=== PATIENT | female | born 1945 | race Caucasian/White ===

== ENCOUNTER 2018-02-21 06:56 | Day surgery (SDC) | payer OTHER ==
[~2018-02-21] VITALS: Ht 162.6 cm; Wt 73.0 kg
[2018-02-21] MEDS ORDERED: CEFAZOLIN SODIUM 1 GM/D5W PM 50 ML IV SCH (07:55)
[2018-02-21] MEDS ORDERED: SIMV20TA1 PO (08:11)
[2018-02-21] MEDS ORDERED: SYN.075 PO (08:11)
[2018-02-21] MEDS ORDERED: BUPIVACAINE-MPF/EPI 0.5% 30 ML VIAL INJ ONE (11:36)
[2018-02-21] MEDS ORDERED: LIDOCAINE MPF 1% - 5 mL VIAL 15 ML ONE (11:37)
== END 2018-02-21 13:25 | disposition home or self-care (01) ==
LOC: MDS 06:56 → MMU 07:01 → MDS 13:25
PROVIDERS: ATTEND Surgery
DX: D17.22 Benign lipomatous neoplasm of skin and subcutaneous tissue of left arm (principal); E78.00 Pure hypercholesterolemia, unspecified; E03.9 Hypothyroidism, unspecified; M19.90 Unspecified osteoarthritis, unspecified site; Z79.899 Other long term (current) drug therapy; Z98.890 Other specified postprocedural states; Z90.710 Acquired absence of both cervix and uterus
CPT/HCPCS: 24071; 88304; J0690; J2001; J3490; J7120